=== PATIENT | male | born 1945 | race African-American/Black ===

== ENCOUNTER 2020-10-25 07:48 | Emergency (ER) | payer MEDICARE ==
[2020-10-25] MEDS ORDERED: Meclizine HCl 25 MG TAB ONE (08:17)
[2020-10-25 08:18] LABS: #Basophils 0.1 thou/uL (0.0-0.2); #Eosinphils 0.1 thou/uL (0.0-0.7); #Lymphocytes 1.8 thou/uL (1.20-3.40); #Monocytes 0.5 thou/uL (0.11-0.59); #Neutrophils 2.2 thou/uL (1.40-6.50); %Basophils 1.6 % (0.0-1.0); %Eosinophils 2.5 % (0.0-10.0); %Lymphocytes 38.6 % (21.0-51.0); %Neutrophils 46.4 % (42.0-75.0); Hemoglobin 11.9 g/dL (14.0-18.0); Mean Corpuscular HGB CONC 30.5 g/dL (32.0-36.0); Mean Corpuscular Hemoglobin 29.3 pg (27.0-31.0); Mean Corpuscular Volume 96.2 fL (78.0-98.0); Mean Platelet Volume 6.2 fL (7.4-10.4); Platelet Count 255 thou/uL (130-400); RBC Distribution Width 13.6 % (11.5-14.5); Red Blood Cell (RBC) Count 4.05 mill/uL (4.70-6.10); White Blood Cell (WBC) Count 4.7 thou/uL (4.8-10.8)
[2020-10-25 08:33] LABS: ALT (SGPT) 14 U/L (8-55); AST (SGOT) 17 U/L (5-34); Albumin 4.2 g/dL (3.4-4.8); Alkaline Phosphatase 76 U/L (40-110); Anion Gap 15 mmol/L (10-20); BUN (Urea Nitrogen) 12 mg/dL (8.4-25.7); Bilirubin, Total 0.5 mg/dL (0.2-1.2); Calc. Creatinine Clearance 0 mL/min (70-130); Calcium 9.6 mg/dL (7.8-10.44); Carbon Dioxide 21 mmol/L (23-31); Chloride 106 mmol/L (98-107); Globulin 3.2 g/dL (2.4-3.5); Glucose 135 mg/dL (83-110); Magnesium 1.6 mg/dL (1.6-2.6); Protein, Total 7.4 g/dL (5.8-8.1); Sodium 138 mmol/L (136-145)
[2020-10-25] MEDS ORDERED: Sodium Chloride 0.9% 1,000 ML ONE (08:51)
[2020-10-25 10:05] LABS: Bilirubin Negative (Negative); Blood, Urine Negative (Negative); Clarity Clear (Clear); Glucose, Urine (Dipstick) Negative (Negative); Ketone, Urine Negative (Negative); Leukocyte Negative (Negative); Nitrite Negative (Negative); Protein, Urine (Dipstick) Negative (Neg-Trace); Specific Gravity, Urine 1.025 (1.005-1.030); Urobilinogen 0.2 mg/dL (Less than 2)
== END 2020-10-25 16:38 | disposition home or self-care (01) ==
LOC: NAV ERS 07:48
DX: R53.1 Weakness (principal); R42 Dizziness and giddiness; E11.9 Type 2 diabetes mellitus without complications; K21.9 Gastro-esophageal reflux disease without esophagitis; E78.2 Mixed hyperlipidemia; I10 Essential (primary) hypertension; Z79.84 Long term (current) use of oral hypoglycemic drugs; Z79.899 Other long term (current) drug therapy
CPT/HCPCS: 70450; 71045; 80053; 81003; 83605; 83735; 84484; 85025; 93005; 94760; J7050

== ENCOUNTER 2020-11-01 18:26 | Inpatient (IN) | payer MEDICARE ==
[2020-11-01] MEDS ORDERED: cloNIDine 0.1 MG TAB PO PRN (19:36)
[2020-11-01] MEDS ORDERED: HumaLOG 300 UNITS/3 ML VIAL SC PRN (19:45)
[2020-11-01] MEDS ORDERED: Dextrose 5% in Water 1,000 ML IV PRN (19:45)
[2020-11-01] MEDS ORDERED: Dextrose 50% Abboject 50 ML SYRINGE IVP PRN (19:45)
[2020-11-01] MEDS: Gabapentin 300 MG CAP PO SCH (20:54)
[2020-11-01] MEDS: Oxybutynin 5 MG TAB PO SCH (20:55)
[2020-11-01] MEDS: Tamsulosin HCl 0.4 MG CAP PO SCH (20:55)
[2020-11-01] MEDS: Atorvastatin Calcium 10 MG TAB PO SCH (20:55)
[2020-11-02 06:30] LABS: Anion Gap 12 mmol/L (10-20); BUN (Urea Nitrogen) 16 mg/dL (8.4-25.7); Calc. Creatinine Clearance 67 mL/min (70-130); Calcium 8.5 mg/dL (7.8-10.44); Carbon Dioxide 24 mmol/L (23-31); Chloride 107 mmol/L (98-107); Glucose 119 mg/dL (83-110); Potassium 4.2 mmol/L (3.5-5.1); Sodium 139 mmol/L (136-145)
[2020-11-02 07:04] LABS: #Eosinphils 0.1 thou/uL (0.0-0.7); #Lymphocytes 1.3 thou/uL (1.20-3.40); #Monocytes 0.8 thou/uL (0.11-0.59); #Neutrophils 3.6 thou/uL (1.40-6.50); %Basophils 0.5 % (0.0-1.0); %Eosinophils 1.4 % (0.0-10.0); %Monocytes 13.9 % (0.0-10.0); %Neutrophils 62.2 % (42.0-75.0); Anisocytosis SLIGHT = 6-15 cells (100X) (0-5/hpf); Hemoglobin 10.2 g/dL (14.0-18.0); Mean Corpuscular HGB CONC 30.8 g/dL (32.0-36.0); Mean Corpuscular Hemoglobin 29.5 pg (27.0-31.0); Mean Corpuscular Volume 95.8 fL (78.0-98.0); Mean Platelet Volume 6.4 fL (7.4-10.4); Platelet Count 227 thou/uL (130-400); Platelet Morphology Comment Appears Adequate; Poikilocytosis SLIGHT = 6-15 cells (100X) (0-5/hpf); RBC Distribution Width 13.7 % (11.5-14.5); Red Blood Cell (RBC) Count 3.45 mill/uL (4.70-6.10); Schistocytes MODERATE= 6-15 cells (100X) (0-1/hpf); White Blood Cell (WBC) Count 5.8 thou/uL (4.8-10.8)
[2020-11-02] MEDS: metFORMIN 500 MG TAB PO SCH (08:56)
[2020-11-02] MEDS: Ferrous Sulfate 325 MG TAB PO SCH (08:56)
[2020-11-02] MEDS: Gabapentin 300 MG CAP PO SCH ×2 (08:56→21:10)
[2020-11-02] MEDS: Finasteride 5 MG TAB PO SCH (08:56)
[2020-11-02] MEDS: Oxybutynin 5 MG TAB PO SCH ×2 (08:57→21:11)
[2020-11-02] MEDS ORDERED: Senokot S 8.6-50 MG TAB PO PRN (12:22)
[2020-11-02] MEDS ORDERED: Artificial Tear Sol 15 ML BOT EA EYE PRN (12:22)
[2020-11-02] MEDS ORDERED: Loperamide HCl 2 MG CAP PO PRN ×2 (12:22)
[2020-11-02] MEDS ORDERED: Sodium Chloride 0.65% Nasal 44 ML BOT EA NARE PRN (12:22)
[2020-11-02] MEDS ORDERED: Acetaminophen 650 MG Suppository PR PRN (12:22)
[2020-11-02] MEDS ORDERED: Ondansetron ODT 4 MG TAB PO PRN (12:22)
[2020-11-02] MEDS ORDERED: Bisacodyl 5 MG TAB PO PRN (12:22)
[2020-11-02] MEDS ORDERED: Ondansetron PF 4 MG/2 ML Vial IVP PRN (12:22)
[2020-11-02] MEDS ORDERED: Eucerin (Mineral Oil/Petrolatum,White) 30 gm Jar TOP PRN (12:22)
[2020-11-02] MEDS ORDERED: Cepastat Lozenges 1 LOZ PO PRN (12:22)
[2020-11-02] MEDS: Tamsulosin HCl 0.4 MG CAP PO SCH (21:10)
[2020-11-02] MEDS: Atorvastatin Calcium 10 MG TAB PO SCH (21:11)
[2020-11-02] MEDS: Famotidine 20 MG TAB PO SCH (21:11)
[2020-11-03] MEDS: Ferrous Sulfate 325 MG TAB PO SCH (08:36)
[2020-11-03] MEDS: metFORMIN 500 MG TAB PO SCH (08:36)
[2020-11-03] MEDS: Famotidine 20 MG TAB PO SCH ×2 (08:36→20:12)
[2020-11-03] MEDS: Finasteride 5 MG TAB PO SCH (08:37)
[2020-11-03] MEDS: Gabapentin 300 MG CAP PO SCH ×2 (08:37→20:11)
[2020-11-03] MEDS: Oxybutynin 5 MG TAB PO SCH ×2 (08:40→20:12)
[2020-11-03] MEDS: Tamsulosin HCl 0.4 MG CAP PO SCH (20:11)
[2020-11-03] MEDS: Atorvastatin Calcium 10 MG TAB PO SCH (20:12)
[2020-11-04 03:08] VITALS: BMI 22.5
[2020-11-04] MEDS: Gabapentin 300 MG CAP PO SCH ×2 (08:38→21:05)
[2020-11-04] MEDS: Ferrous Sulfate 325 MG TAB PO SCH (08:38)
[2020-11-04] MEDS: Famotidine 20 MG TAB PO SCH ×2 (08:38→21:06)
[2020-11-04] MEDS: Finasteride 5 MG TAB PO SCH (08:38)
[2020-11-04] MEDS: metFORMIN 500 MG TAB PO SCH (08:38)
[2020-11-04] MEDS: Oxybutynin 5 MG TAB PO SCH ×2 (08:39→21:06)
[2020-11-04] MEDS: Atorvastatin Calcium 10 MG TAB PO SCH (21:06)
[2020-11-04] MEDS: Tamsulosin HCl 0.4 MG CAP PO SCH (21:06)
[2020-11-05] MEDS: Finasteride 5 MG TAB PO SCH (08:59)
[2020-11-05] MEDS: metFORMIN 500 MG TAB PO SCH (08:59)
[2020-11-05] MEDS: Oxybutynin 5 MG TAB PO SCH ×2 (08:59→20:18)
[2020-11-05] MEDS: Ferrous Sulfate 325 MG TAB PO SCH (08:59)
[2020-11-05] MEDS: Gabapentin 300 MG CAP PO SCH ×2 (08:59→20:17)
[2020-11-05] MEDS: Famotidine 20 MG TAB PO SCH ×2 (08:59→20:18)
[2020-11-05] MEDS ORDERED: Lidocaine 3%/Hydrocortisone 0.5% CREAM TP PRN (12:54)
[2020-11-05] MEDS: Acetaminophen 325 MG TAB PO PRN (13:35)
[2020-11-05] MEDS: Atorvastatin Calcium 10 MG TAB PO SCH (20:17)
[2020-11-05] MEDS: Tamsulosin HCl 0.4 MG CAP PO SCH (20:18)
[2020-11-05] MEDS: Lidocaine 2% Jelly 5 ML TUBE TOP PRN (20:18)
[2020-11-06] MEDS: Gabapentin 300 MG CAP PO SCH ×2 (08:36→20:36)
[2020-11-06] MEDS: metFORMIN 500 MG TAB PO SCH (08:37)
[2020-11-06] MEDS: Ferrous Sulfate 325 MG TAB PO SCH (08:37)
[2020-11-06] MEDS: Finasteride 5 MG TAB PO SCH (08:37)
[2020-11-06] MEDS: Famotidine 20 MG TAB PO SCH ×2 (08:37→20:36)
[2020-11-06] MEDS: Oxybutynin 5 MG TAB PO SCH ×2 (08:37→20:37)
[2020-11-06] MEDS ORDERED: Ondansetron ODT 4 MG TAB SL PRN (08:45)
[2020-11-06] MEDS: Tamsulosin HCl 0.4 MG CAP PO SCH (20:37)
[2020-11-06] MEDS: Atorvastatin Calcium 10 MG TAB PO SCH (20:37)
[2020-11-06] MEDS: Lidocaine 2% Jelly 5 ML TUBE TOP PRN (20:42)
[2020-11-07] MEDS: Ferrous Sulfate 325 MG TAB PO SCH (08:31)
[2020-11-07] MEDS: metFORMIN 500 MG TAB PO SCH (08:31)
[2020-11-07] MEDS: Famotidine 20 MG TAB PO SCH ×2 (08:31→21:35)
[2020-11-07] MEDS: Gabapentin 300 MG CAP PO SCH ×2 (08:32→21:35)
[2020-11-07] MEDS: Finasteride 5 MG TAB PO SCH (08:32)
[2020-11-07] MEDS: Oxybutynin 5 MG TAB PO SCH ×2 (08:33→21:35)
[2020-11-07] MEDS: Acetaminophen 325 MG TAB PO PRN (08:33)
[2020-11-07] MEDS: Atorvastatin Calcium 10 MG TAB PO SCH (21:35)
[2020-11-07] MEDS: Tamsulosin HCl 0.4 MG CAP PO SCH (21:36)
[2020-11-07 23:09] LABS: Bilirubin Negative (Negative); Blood, Urine Moderate (Negative); Clarity Clear (Clear); Glucose, Urine (Dipstick) Negative (Negative); Ketone, Urine Negative (Negative); Leukocyte Negative (Negative); Nitrite Negative (Negative); Protein, Urine (Dipstick) Negative (Neg-Trace); Urobilinogen 0.2 mg/dL (Less than 2); pH, Urine 5.5 (5.0-9.0)
[2020-11-07 23:23] LABS: RBC/HPF 21-50 HPF (0-3); Squamous Epithelial 0-3 HPF (0-3); WBC/HPF 0-3 HPF (0-3)
[2020-11-08] MEDS: Famotidine 20 MG TAB PO SCH ×2 (08:20→20:26)
[2020-11-08] MEDS: Ferrous Sulfate 325 MG TAB PO SCH (08:20)
[2020-11-08] MEDS: Gabapentin 300 MG CAP PO SCH ×2 (08:20→20:26)
[2020-11-08] MEDS: metFORMIN 500 MG TAB PO SCH (08:20)
[2020-11-08] MEDS: Finasteride 5 MG TAB PO SCH (08:20)
[2020-11-08] MEDS: Oxybutynin 5 MG TAB PO SCH ×2 (08:21→20:27)
[2020-11-08] MEDS: Acetaminophen 325 MG TAB PO PRN (16:33)
[2020-11-08] MEDS: Atorvastatin Calcium 10 MG TAB PO SCH (20:27)
[2020-11-08] MEDS: Tamsulosin HCl 0.4 MG CAP PO SCH (20:27)
[2020-11-09] MEDS: Gabapentin 300 MG CAP PO SCH (08:25)
[2020-11-09] MEDS: Famotidine 20 MG TAB PO SCH (08:26)
[2020-11-09] MEDS: metFORMIN 500 MG TAB PO SCH (08:26)
[2020-11-09] MEDS: Finasteride 5 MG TAB PO SCH (08:26)
[2020-11-09] MEDS: Ferrous Sulfate 325 MG TAB PO SCH (08:26)
[2020-11-09] MEDS: Oxybutynin 5 MG TAB PO SCH (08:26)
[2020-11-09 14:52] VITALS: BP 130/70; TEMP 98
== END 2020-11-09 14:40 | disposition home health service (06) | DRG 149 ==
LOC: NAV ACUTE 18:26
PROVIDERS: ADMIT Family Medicine; ATTEND Family Medicine
DX: R42 Dizziness and giddiness (principal); K21.9 Gastro-esophageal reflux disease without esophagitis; E11.40 Type 2 diabetes mellitus with diabetic neuropathy, unspecified; F17.210 Nicotine dependence, cigarettes, uncomplicated; I10 Essential (primary) hypertension; E78.5 Hyperlipidemia, unspecified; N40.1 Benign prostatic hyperplasia with lower urinary tract symptoms; R33.8 Other retention of urine; Z90.49 Acquired absence of other specified parts of digestive tract; Z79.84 Long term (current) use of oral hypoglycemic drugs
CPT/HCPCS: 36416; 80048; 81003; 81015; 85025

== ENCOUNTER 2025-05-28 18:47 | Inpatient (IN) | payer OTHER ==
[2025-05-28 19:52] LABS: #Basophils 0.5 thou/uL (0.0-0.2); #Eosinophils 0.0 thou/uL (0.0-0.7); #Lymphocytes 0.8 thou/uL (1.20-3.40); #Monocytes 1.0 thou/uL (0.11-0.59); #Neutrophils 13.3 thou/uL (1.40-6.50); %Basophils 3.2 % (0.0-1.0); %Eosinophils 0.0 % (0.0-10.0); %Lymphocytes 5.3 % (21.0-51.0); %Monocytes 6.4 % (0.0-10.0); %Neutrophils 85.2 % (42.0-75.0); Hematocrit 37.3 % (42.0-52.0); Hemoglobin 13.0 g/dL (14.0-18.0); Mean Corpuscular Hemoglobin 30.4 pg (27.0-31.0); Mean Corpuscular Volume 86.9 fl (78.0-98.0); Platelet Count 207 10x3/uL (130-400); Red Blood Cell (RBC) Count 4.29 mill/uL (4.70-6.10); White Blood Cell (WBC) Count 15.6 10x3/uL (4.8-10.8)
[2025-05-28 20:03] LABS: ALT (SGPT) 20 U/L (Less than 45); AST (SGOT) 23 U/L (11-34); Albumin 3.4 g/dL (3.1-4.5); Alkaline Phosphatase 69 U/L (40-110); Anion Gap 19 mmol/L (10-20); BUN (Urea Nitrogen) 15 mg/dL (8.4-25.7); Bilirubin, Total 1.1 mg/dL (0.3-1.2); Calc. Creatinine Clearance 0 mL/min (70-130); Calcium 8.8 mg/dL (7.8-10.44); Carbon Dioxide 21 mmol/L (23-31); Chloride 103 mmol/L (98-107); Globulin 3.5 g/dL (2.4-3.5); Glucose 153 mg/dL (83-110); Potassium 3.9 mmol/L (3.5-5.1); Sodium 139 mmol/L (136-145)
[2025-05-28 20:05] LABS: Troponin I 0.015 ng/mL (< 0.028)
[2025-05-28] MEDS ORDERED: Guaifenesin DM 100-10/5 ML UDCUP PO PRN (21:26)
[2025-05-28 22:48] LABS: Troponin I 0.018 ng/mL (< 0.028)
[2025-05-28] MEDS: cefTRIAXone\\ROCEPHIN 2 GM in Sodium Chloride 0.9% 100 ML IVPB SCH (22:58)
[2025-05-28] MEDS: Azithromycin 250 MG TAB PO SCH (22:58)
[2025-05-28 23:34] VITALS: BMI 25.2
[2025-05-28] MEDS: Acetaminophen 325 MG TAB PO PRN (23:50)
[2025-05-29] MEDS: Ketorolac Tromethamine 30 MG (1 mL) VIAL ONE (02:35)
[2025-05-29] MEDS: Pantoprazole 40 MG DR.TAB ONE (02:35)
[2025-05-29] MEDS: Naproxen 500 MG TAB ONE (02:35)
[2025-05-29] MEDS: cefTRIAXone (ROCEPHIN) 2 GM VIAL ONE (02:36)
[2025-05-29] MEDS: Azithromycin 500 MG VIAL ONE (02:36)
[2025-05-29 06:40] LABS: ALT (SGPT) 19 U/L (Less than 45); AST (SGOT) 35 U/L (11-34); Albumin 2.9 g/dL (3.1-4.5); Alkaline Phosphatase 74 U/L (40-110); Anion Gap 18 mmol/L (10-20); BUN (Urea Nitrogen) 18 mg/dL (8.4-25.7); Bilirubin, Total 0.7 mg/dL (0.3-1.2); Calc. Creatinine Clearance 44 mL/min (70-130); Calcium 8.7 mg/dL (7.8-10.44); Carbon Dioxide 16 mmol/L (23-31); Chloride 106 mmol/L (98-107); Globulin 3.8 g/dL (2.4-3.5); Glucose 164 mg/dL (83-110); Potassium 4.0 mmol/L (3.5-5.1); Sodium 136 mmol/L (136-145)
[2025-05-29] MEDS ORDERED: Dextrose 50% Abboject 50 ML SYRINGE SLOW IVP PRN (07:22)
[2025-05-29] MEDS ORDERED: Glucagon 1 MG/ML KIT IM PRN (07:22)
[2025-05-29] MEDS: Lisinopril 10 MG TAB PO SCH (08:42)
[2025-05-29] MEDS: PNEUMOC 20-VAL CONJ-DIP CRM/PF 0.5 ML SYRINGE IM ONE (08:42)
[2025-05-29] MEDS: Enoxaparin 40 MG (0.4 mL) SYRINGE SC SCH (08:50)
[2025-05-29] MEDS: Ferrous Sulfate 325 MG TAB PO SCH (08:51)
[2025-05-29] MEDS: Famotidine 20 MG TAB PO SCH (08:51)
[2025-05-29] MEDS: metFORMIN 500 MG TAB PO SCH (08:51)
[2025-05-29] MEDS: Aspirin Chewable 81 MG TAB PO SCH (08:51)
[2025-05-29] MEDS: Gabapentin 300 MG CAP PO SCH (08:51)
[2025-05-29] MEDS: Azithromycin 250 MG TAB PO SCH (08:51)
[2025-05-29 10:43] LABS: #Basophils 0.1 thou/uL (0.0-0.2); #Eosinophils 0.0 thou/uL (0.0-0.7); #Lymphocytes 0.7 thou/uL (1.20-3.40); #Monocytes 0.9 thou/uL (0.11-0.59); #Neutrophils 13.0 thou/uL (1.40-6.50); %Basophils 1.0 % (0.0-1.0); %Eosinophils 0.2 % (0.0-10.0); %Lymphocytes 4.8 % (21.0-51.0); %Monocytes 6.2 % (0.0-10.0); %Neutrophils 87.9 % (42.0-75.0); Hematocrit 37.8 % (42.0-52.0); Hemoglobin 13.0 g/dL (14.0-18.0); Mean Corpuscular Hemoglobin 30.5 pg (27.0-31.0); Mean Corpuscular Volume 88.6 fl (78.0-98.0); Platelet Count 211 10x3/uL (130-400); Red Blood Cell (RBC) Count 4.26 mill/uL (4.70-6.10); White Blood Cell (WBC) Count 14.8 10x3/uL (4.8-10.8)
[2025-05-29 12:13] LABS: Influenza A by NAA Not Detected (NotDetected); Influenza B by NAA Not Detected (NotDetected); SARS-CoV-2 NAA Rapid Test Not Detected (NotDetected)
[2025-05-29 18:09] VITALS: BMI 25.2
[2025-05-29] MEDS: Simvastatin 10 MG TAB PO SCH (21:06)
[2025-05-30] MEDS: Senokot S 8.6-50 MG TAB PO PRN (08:43)
[2025-05-30 13:08] LABS: #Basophils 0.1 thou/uL (0.0-0.2); #Eosinophils 0.1 thou/uL (0.0-0.7); #Lymphocytes 1.0 thou/uL (1.20-3.40); #Monocytes 0.5 thou/uL (0.11-0.59); #Neutrophils 7.0 thou/uL (1.40-6.50); %Basophils 1.6 % (0.0-1.0); %Eosinophils 1.2 % (0.0-10.0); %Lymphocytes 11.6 % (21.0-51.0); %Monocytes 5.8 % (0.0-10.0); %Neutrophils 79.7 % (42.0-75.0); Hematocrit 36.2 % (42.0-52.0); Hemoglobin 12.3 g/dL (14.0-18.0); Mean Corpuscular Hemoglobin 30.3 pg (27.0-31.0); Mean Corpuscular Volume 88.7 fl (78.0-98.0); Platelet Count 226 10x3/uL (130-400); Red Blood Cell (RBC) Count 4.08 mill/uL (4.70-6.10); White Blood Cell (WBC) Count 8.8 10x3/uL (4.8-10.8)
[2025-05-30 13:20] LABS: Anion Gap 16 mmol/L (10-20); BUN (Urea Nitrogen) 14 mg/dL (8.4-25.7); Calc. Creatinine Clearance 58 mL/min (70-130); Calcium 9.2 mg/dL (7.8-10.44); Carbon Dioxide 18 mmol/L (23-31); Chloride 107 mmol/L (98-107); Glucose 157 mg/dL (83-110); Potassium 3.5 mmol/L (3.5-5.1); Sodium 137 mmol/L (136-145)
[2025-05-30] MEDS: Transdermal Patch Removal TOP SCH (20:57)
[2025-05-31 06:13] LABS: #Basophils 0.3 thou/uL (0.0-0.2); #Eosinophils 0.2 thou/uL (0.0-0.7); #Lymphocytes 1.0 thou/uL (1.20-3.40); #Monocytes 0.6 thou/uL (0.11-0.59); #Neutrophils 3.3 thou/uL (1.40-6.50); %Basophils 5.3 % (0.0-1.0); %Eosinophils 2.9 % (0.0-10.0); %Lymphocytes 18.6 % (21.0-51.0); %Monocytes 10.5 % (0.0-10.0); %Neutrophils 62.7 % (42.0-75.0); Hematocrit 33.1 % (42.0-52.0); Hemoglobin 11.4 g/dL (14.0-18.0); Mean Corpuscular Hemoglobin 30.0 pg (27.0-31.0); Mean Corpuscular Volume 87.4 fl (78.0-98.0); Platelet Count 241 10x3/uL (130-400); Red Blood Cell (RBC) Count 3.79 mill/uL (4.70-6.10); White Blood Cell (WBC) Count 5.3 10x3/uL (4.8-10.8)
[2025-05-31 06:14] LABS: Anion Gap 14 mmol/L (10-20); BUN (Urea Nitrogen) 13 mg/dL (8.4-25.7); Calc. Creatinine Clearance 57 mL/min (70-130); Calcium 9.2 mg/dL (7.8-10.44); Carbon Dioxide 23 mmol/L (23-31); Chloride 107 mmol/L (98-107); Glucose 115 mg/dL (83-110); Potassium 3.6 mmol/L (3.5-5.1); Sodium 140 mmol/L (136-145)
[2025-06-01] MEDS: cefTRIAXone\\ROCEPHIN 2 GM in Sodium Chloride 0.9% 100 ML IVPB SCH (11:40)
[2025-06-01 13:19] VITALS: BP 150/80; TEMP 97.4
== END 2025-06-01 13:31 | disposition home or self-care (01) | DRG 871 ==
LOC: NAV ERS 18:47 → NAV ACUTE 21:25
PROVIDERS: ADMIT Family Medicine; ATTEND Family Medicine
PROC: 3E03329 Introduction of Other Anti-infective into Peripheral Vein, Percutaneous Approach (ICD-10-PCS; principal; 2025-05-28)
PROC: 3E0234Z Introduction of Serum, Toxoid and Vaccine into Muscle, Percutaneous Approach (ICD-10-PCS; 2025-05-28)
DX: A41.9 Sepsis, unspecified organism (principal); J18.9 Pneumonia, unspecified organism; J96.01 Acute respiratory failure with hypoxia; N17.9 Acute kidney failure, unspecified; R07.9 Chest pain, unspecified; N40.0 Benign prostatic hyperplasia without lower urinary tract symptoms; K21.9 Gastro-esophageal reflux disease without esophagitis; E78.1 Pure hyperglyceridemia; I12.9 Hypertensive chronic kidney disease with stage 1 through stage 4 chronic kidney disease, or unspecified chronic kidney disease; E11.22 Type 2 diabetes mellitus with diabetic chronic kidney disease; N18.2 Chronic kidney disease, stage 2 (mild); F10.90 Alcohol use, unspecified, uncomplicated; Z90.79 Acquired absence of other genital organ(s); Z98.890 Other specified postprocedural states; Z90.49 Acquired absence of other specified parts of digestive tract; Z79.899 Other long term (current) drug therapy; Z79.01 Long term (current) use of anticoagulants; Z79.84 Long term (current) use of oral hypoglycemic drugs; Z87.891 Personal history of nicotine dependence
CPT/HCPCS: 36415; 36416; 71046; 80048; 80053; 83605; 84145; 84484; 85025; 85379; 87040; 87636; 93005; 96365; 96367; J0456; J0696; J1650; J1815; J1885; J7030; J7050; J7120